=== PATIENT | female | born 2000 | race Caucasian/White ===

== ENCOUNTER 2020-06-15 09:22 | Observation (INO) | payer BC ==
[2020-06-15] MEDS ORDERED: PREN-96 PO (13:32)
== END 2020-06-15 13:30 | disposition home or self-care (01) | DRG 833 ==
LOC: XYW 09:22 → LDRP 11:38
PROVIDERS: ADMIT Specialist; ATTEND Specialist
DX: O24.410 Gestational diabetes mellitus in pregnancy, diet controlled (principal); O62.9 Abnormality of forces of labor, unspecified; Z3A.39 39 weeks gestation of pregnancy
CPT/HCPCS: 59025; 76818; 81002; 82948; 82962; G0378

== ENCOUNTER 2020-06-18 09:07 | Observation (INO) | payer BC ==
[~2020-06-18 09:07] MED LIST: PREN-96 PO
== END 2020-06-18 10:48 | disposition home or self-care (01) ==
LOC: LDRP 09:07
PROVIDERS: ADMIT Specialist; ATTEND Specialist
DX: O24.410 Gestational diabetes mellitus in pregnancy, diet controlled (principal); Z3A.39 39 weeks gestation of pregnancy
CPT/HCPCS: 59025; 76818; 81002; 82948; 82962; G0378

== ENCOUNTER 2020-06-21 20:58 | Inpatient (IN) | payer BC ==
[~2020-06-21] VITALS: Ht 165.1 cm; Wt 63.5 kg
[2020-06-21] MEDS ORDERED: LACT. RINGERS/OXYTOCIN 20UNITS 1,000 ML IV SCH (22:02)
[2020-06-21] MEDS ORDERED: LIDOCAINE 2%HCL (LOCAL ANESTH.) INJ 20ML MDV ID ONE (22:15)
[2020-06-21] MEDS ORDERED: METHYLERGONOVINE MALEATE 0.2 MG/ML AMP IM PRN (22:15)
[2020-06-21] MEDS ORDERED: DERMOPLAST 60ML BOTTLE TOP PRN (22:15)
[2020-06-21] MEDS ORDERED: PHISODERM TOP SOLN 240ML BTL TOP PRN (22:15)
[2020-06-21] MEDS ORDERED: WITCH HAZEL-GLYCERIN PAD TOP PRN (22:15)
[2020-06-21] MEDS ORDERED: PENICILLIN G POT 5MIL/D5 50ML 50 ML IV ONE ×2 (22:15→22:34)
[2020-06-21] MEDS: PENICILLIN G POTASSIUM 2,500,000 UNITS in D5W 5% 50 ML IV SCH (22:38)
[2020-06-21 22:49] LABS: Basophils # (auto) 0 10 ^3/uL (0-0.2); Basophils % (auto) 0.4 % (0.0-2.0); Eosinophils # (auto) 0 10 ^3/uL (0-0.8); Hematocrit 33.2 % (36.0-46.0); Hemoglobin 10.9 g/dL (12.2-16.2); Lymphocytes # (auto) 2.7 10 ^3/uL (0.4-5.4); Lymphocytes % (auto) 24.7 % (10.0-50.0); Mean Corpuscular Hemoglobin 30.2 pg (28.0-32.0); Mean Corpuscular Hgb Conc. 32.8 g/dL (32.0-36.0); Monocytes # (auto) 0.9 10 ^3/uL (0-1.3); Monocytes % (auto) 8.4 % (0.0-12.0); Neutrophils # (auto) 7.3 10 ^3/uL (1.6-8.6); Neutrophils % (auto) 66.5 % (37.0-80.0); Platelet Count (auto) 208 10^3/uL (140-450); Red Blood Cells 3.61 10^6/uL (4.0-5.20); Red Cell Distribution Width 12.9 % (11.8-14.3); White Blood Cell 10.9 10^3/uL (4.4-10.8)
[2020-06-21 23:09] LABS: INR 0.93 (0.9-1.15); Partial Thromboplastin Time 25.9 sec (23.0-31.2)
[2020-06-21 23:14] LABS: Albumin 2.8 g/dL (3.4-5.0); Calcium 7.9 mg/dL (8.5-10.1); Potassium 3.4 mmol/L (3.5-5.1); Uric Acid 5.9 mg/dL (2.6-6.0)
[2020-06-21 23:17] LABS: BUN/Creatinine Ratio 13.6; Bilirubin, Total 0.4 mg/dL (0.2-1.0); Total Protein 6.2 g/dL (6.4-8.2)
[2020-06-21] MEDS ORDERED: miSOPROStol 50 MCG per PRE-CUT 1/2 TAB ONE (23:26)
[2020-06-21] MEDS: miSOPROStol 50 MCG per PRE-CUT 1/2 TAB PO PRN (23:33)
[2020-06-21 23:41] LABS: Urine Bacteria MOD /hpf (None Seen); Urine Blood Negative /uL (Negative); Urine Mucus FEW (None Seen); Urine Specific Gravity 1.023 (1.001-1.035); Urine WBC 124 /hpf (0 - 5)
[2020-06-21 23:48] LABS: Alcohol, Urine < 3.0 mg/dL (0-10); Amphetamine Screen, Urine NEGATIVE (NEGATIVE); Barbiturate Scree,Urine NEGATIVE (NEGATIVE); Benzodiazephine Screen, Urine NEGATIVE (NEGATIVE); Cannabinoid Screen, Urine NEGATIVE (NEGATIVE); Cocaine Screen, Urine NEGATIVE (NEGATIVE); Opiate Scree,Urine NEGATIVE (NEGATIVE); Phencyclidine Screen, Urine NEGATIVE (NEGATIVE)
[2020-06-22] MEDS: LACTATED RINGER'S 1,000 ML IV SCH ×2 (02:38→05:48)
[2020-06-22] MEDS ORDERED: PENICILLIN G POT 5MILLION UNIT VIAL ONE (02:41)
[2020-06-22] MEDS: PENICILLIN G POTASSIUM 2,500,000 UNITS in D5W 5% 50 ML IV SCH ×2 (02:51→07:23)
[2020-06-22] MEDS: miSOPROStol 50 MCG per PRE-CUT 1/2 TAB PO PRN (03:27)
[2020-06-22] MEDS ORDERED: BUTORPHANOL TARTRATE 2 MG/1 ML VIAL ONE (06:27)
[2020-06-22] MEDS ORDERED: BUTORPHANOL TARTRATE 2 MG/1 ML VIAL IV PRN (06:30)
[2020-06-22] MEDS ORDERED: LACTATED RINGER'S 1,000 ML IV ONE (07:09)
[2020-06-22] MEDS ORDERED: NALOXONE HCL 0.4 MG/ML VIAL IV PRN (07:15)
[2020-06-22] MEDS ORDERED: LIDOCAINE HCL 2 %PF INJ 10ML AMP IJ ONE (07:15)
[2020-06-22] MEDS ORDERED: fentaNYL CITRATE 100 MCG/2 ML VL EPI ONE (07:15)
[2020-06-22] MEDS ORDERED: ePHEDrine SULFATE 50 MG/ML AMP IV ONE (07:15)
[2020-06-22] MEDS ORDERED: ROPIVACAINE HCL 100 ML EPI SCH (07:15)
[2020-06-22] MEDS ORDERED: LACT. RINGERS/OXYTOCIN 20UNITS 500 ML IV PRN (07:15)
[2020-06-22] MEDS ORDERED: LACT. RINGERS/OXYTOCIN 20UNITS 1,000 ML IV PRN (07:15)
[2020-06-22] MEDS ORDERED: IBUPROFEN 600 MG TAB PO PRN (10:30)
--- NOTE | 2020-06-22 12:15 | NUR ---
Ambulation: Patient OOB with standby assistance by RN. Patient ambulated to bathroom with steady gait. Patient able to void 400ml without difficulty. Pericare teaching provided with returned demonstration by patient. Clean gown provided and bed linen changed. Patient ambulated back to bed with steady gait and no distress noted.
[2020-06-22 15:00] VITALS: BP 107/60
[2020-06-22 19:00] VITALS: BP 99/62
[2020-06-22 23:00] VITALS: BP 116/78
--- NOTE | 2020-06-23 00:10 | NUR ---
IV removal IV DC'd with clean technique, catheter fully intact. Pressure dressing applied to site. Patient tolerated well. NOTE:
[2020-06-23 03:01] VITALS: BP 109/70
[2020-06-23 07:03] VITALS: BP 100/58
[2020-06-23 07:09] LABS: RPR Non Reactive (Non Reactive)
[2020-06-23 10:29] VITALS: BP 109/59
--- NOTE | 2020-06-23 10:37 | NUR ---
Discharge: Discharge instructions given as ordered. Pt encouraged to follow up with SUPERVISOR WELDING EQUIPMENT REPAIRER as instructed. All questions and concerns addressed. Patient verbalized understanding. Medication reconciliation completed and copy given to patient. Patient encouraged to prepare to depart unit. REFUSED ALL VACCINES T-DAP .
--- NOTE | 2020-06-23 12:02 | NUR ---
Discharge: Patient taken to vehicle via ambulation with all personal belongings, accompanied by staff and family member. No distress noted at time of departure, no adverse changes in status since initial assessment.
== END 2020-06-23 12:00 | disposition home or self-care (01) | DRG 807 ==
LOC: LDRP 20:58
PROVIDERS: ADMIT Specialist; ATTEND Specialist
PROC: 10E0XZZ Delivery of Products of Conception, External Approach (ICD-10-PCS; principal; 2020-06-22)
PROC: 3E0P7VZ Introduction of Hormone into Female Reproductive, Via Natural or Artificial Opening (ICD-10-PCS; 2020-06-22)
PROC: 0UQGXZZ Repair Vagina, External Approach (ICD-10-PCS; 2020-06-22)
PROC: 3E0R3BZ Introduction of Anesthetic Agent into Spinal Canal, Percutaneous Approach (ICD-10-PCS; 2020-06-22)
PROC: 00HU33Z Insertion of Infusion Device into Spinal Canal, Percutaneous Approach (ICD-10-PCS; 2020-06-22)
DX: O99.824 Streptococcus B carrier state complicating childbirth (principal); Z37.0 Single live birth; Z3A.40 40 weeks gestation of pregnancy; O24.420 Gestational diabetes mellitus in childbirth, diet controlled; O71.4 Obstetric high vaginal laceration alone
CPT/HCPCS: 36415; 59025; 59409; 62282; 80053; 80307; 81001; 81002; 84112; 84550; 85025; 85610; 85730; 86592; 86850; 86900; 86901; 94760; 96360; 96361; 96365; 96366; 96374; G0378; J2540; J2590; J7060

== ENCOUNTER 2023-08-08 13:53 | Observation (INO) | payer BC, MEDICAID ==
[2023-08-08] MEDS ORDERED: CEPH250C PO (15:43)
== END 2023-08-08 15:47 | disposition home or self-care (01) ==
LOC: UNDOADMOB 13:53 → LDRP 13:53
PROVIDERS: ADMIT Obstetrics & Gynecology; ATTEND Obstetrics & Gynecology
DX: O24.419 Gestational diabetes mellitus in pregnancy, unspecified control (principal); O23.43 Unspecified infection of urinary tract in pregnancy, third trimester; Z3A.38 38 weeks gestation of pregnancy
CPT/HCPCS: 59025; 76818; 81002; 82962; 94760; G0378

== ENCOUNTER 2023-08-20 15:50 | Inpatient (IN) | payer MEDICAID ==
[~2023-08-20] VITALS: Ht 165.1 cm; Wt 68.9 kg
[~2023-08-20 15:50] MED LIST changes: +CEPH250C PO
[2023-08-20] MEDS ORDERED: PHISODERM TOP SOLN 240ML BTL TOP PRN (17:30)
[2023-08-20] MEDS ORDERED: LACT. RINGERS/OXYTOCIN 20UNITS 500 ML IV ONE ×2 (17:30→18:00)
[2023-08-20] MEDS ORDERED: LACTATED RINGER'S 1,000 ML IV SCH (17:30)
[2023-08-20] MEDS ORDERED: DERMOPLAST 60ML BOTTLE TOP PRN (17:30)
[2023-08-20] MEDS ORDERED: PROMETHAZINE HCL 25 MG/ML 1ML IV PRN (17:30)
[2023-08-20] MEDS ORDERED: LIDOCAINE 2%HCL (LOCAL ANESTH.) INJ 20ML MDV IJ PRN (17:30)
[2023-08-20] MEDS ORDERED: BUTORPHANOL TARTRATE 2 MG/1 ML VIAL IV PRN ×2 (17:30)
[2023-08-20] MEDS ORDERED: PENICILLIN G POT 5MIL/D5 50ML 50 ML IV ONE (17:45)
[2023-08-20 18:08] LABS: Basophils # (auto) 0.1 10 ^3/uL (0-0.2); Basophils % (auto) 0.8 % (0.0-2.0); Eosinophils # (auto) 0 10 ^3/uL (0-0.8); Hematocrit 34.8 % (36.0-46.0); Hemoglobin 11.4 g/dL (12.2-16.2); Lymphocytes # (auto) 2.9 10 ^3/uL (0.4-5.4); Lymphocytes % (auto) 26.6 % (10.0-50.0); Mean Corpuscular Hemoglobin 29.5 pg (28.0-32.0); Mean Corpuscular Hgb Conc. 32.8 g/dL (32.0-36.0); Monocytes # (auto) 0.9 10 ^3/uL (0-1.3); Neutrophils # (auto) 7.1 10 ^3/uL (1.6-8.6); Neutrophils % (auto) 64.6 % (37.0-80.0); Nucleated Red Blood Cells % 0.1 %; Red Blood Cells 3.87 10^6/uL (4.0-5.20); Red Cell Distribution Width 14.5 % (11.8-14.3)
[2023-08-20 18:10] LABS: Urine Bacteria FEW /hpf (None Seen); Urine Blood Negative /uL (Negative); Urine Clarity HAZY (Clear); Urine Color Yellow (Yellow); Urine Protein, UAD TRACE (Negative); Urine WBC 14 /hpf (0 - 5); Urine pH 6.5 (5.0-8.0)
[2023-08-20 18:24] LABS: INR 0.93 (0.9-1.15); Partial Thromboplastin Time 26.3 SEC (24.5-34.5); Prothrombin Time 9.8 sec (9.3-11.8)
[2023-08-20 18:26] LABS: Amphetamine Screen, Urine Neg (NEGATIVE); Barbiturate Scree,Urine Neg (NEGATIVE); Benzodiazephine Screen, Urine Neg (NEGATIVE); Cocaine Screen, Urine Neg (NEGATIVE); Opiate Scree,Urine Neg (NEGATIVE)
[2023-08-20 18:27] LABS: Cannabinoid Screen, Urine Neg (NEGATIVE); Phencyclidine Screen, Urine Neg (NEGATIVE)
[2023-08-20 18:28] LABS: Albumin 3.9 g/dL (3.2-4.8); Alkaline Phosphatase 195 U/L (46-116); Anion Gap 8 (5-15); Aspartate Aminotransferase 17 U/L (13-40); BUN/Creatinine Ratio 13.8 (10.0-20.0); Blood Urea Nitrogen 8 mg/dL (9-23); Calcium 8.9 mg/dL (8.5-10.1); Carbon Dioxide 22 mmol/L (20-30); Chloride 107 mmol/L (98-107); Glucose 85 mg/dL (74-106); Potassium 3.6 mmol/L (3.5-5.1); Sodium 137 mmol/L (136-145)
[2023-08-20 18:29] LABS: Bilirubin, Total 0.4 mg/dL (0.2-1.0); Total Protein 6.8 g/dL (5.7-8.2)
[2023-08-20] MEDS: WITCH HAZEL-GLYCERIN PAD TOP PRN (18:45)
[2023-08-20 19:01] LABS: Alanine Aminotransferase 9 U/L (7-40)
[2023-08-20] MEDS ORDERED: PENICILLIN G POTASSIUM 2,500,000 UNITS in D5W 5% 50 ML IV SCH (21:45)
[2023-08-20] MEDS ORDERED: ACETAMINOPHEN 325 MG TAB PO PRN (22:30)
[2023-08-20] MEDS ORDERED: ONDANSETRON ODT 4 MG TAB PO PRN (22:30)
[2023-08-20 23:25] VITALS: BP 122/68; PULSE 76; RESP 18; TEMP 98.6; O2SAT 97
[2023-08-21 03:00] VITALS: BP 103/57; PULSE 73; RESP 16; TEMP 98.8; O2SAT 98
[2023-08-21] MEDS: IBUPROFEN 600 MG TAB PO PRN ×2 (04:11→20:10)
[2023-08-21 06:35] VITALS: BP 118/56; PULSE 61; RESP 16; TEMP 98.3
[2023-08-21 09:44] LABS: Basophils # (auto) 0.1 10 ^3/uL (0-0.2); Basophils % (auto) 0.5 % (0.0-2.0); Eosinophils # (auto) 0 10 ^3/uL (0-0.8); Hematocrit 32.2 % (36.0-46.0); Hemoglobin 10.8 g/dL (12.2-16.2); Lymphocytes # (auto) 2.6 10 ^3/uL (0.4-5.4); Lymphocytes % (auto) 22.6 % (10.0-50.0); Mean Corpuscular Hemoglobin 30.4 pg (28.0-32.0); Mean Corpuscular Hgb Conc. 33.5 g/dL (32.0-36.0); Mean Corpuscular Volume 90.7 fL (80.0-100.0); Monocytes % (auto) 8.2 % (0.0-12.0); Neutrophils # (auto) 7.9 10 ^3/uL (1.6-8.6); Neutrophils % (auto) 68.7 % (37.0-80.0); Nucleated Red Blood Cells % 0.1 %; Red Blood Cells 3.55 10^6/uL (4.0-5.20); Red Cell Distribution Width 14.9 % (11.8-14.3); White Blood Cell 11.6 10^3/uL (4.4-10.8)
[2023-08-21 11:00] VITALS: BP 116/78; PULSE 76; RESP 16; TEMP 98.5; O2SAT 99
[2023-08-21] MEDS ORDERED: FERR30CA PO (13:07)
[2023-08-21] MEDS ORDERED: IBU600T PO (13:07)
[2023-08-21] MEDS ORDERED: DOCU-265 PO (13:07)
[2023-08-21] MEDS ORDERED: CEPH250C PO (13:07)
[2023-08-21 15:00] VITALS: BP 117/77; PULSE 63; RESP 18; TEMP 99.3
[2023-08-21 19:00] VITALS: BP 126/77; PULSE 66; PULSE 90; RESP 18; RESP 20; TEMP 98.7; O2SAT 96
[2023-08-21] MEDS: WITCH HAZEL-GLYCERIN PAD TOP PRN (20:13)
[2023-08-21] MEDS ORDERED: DOCUSATE SOD 100 MG CAP PO SCH (22:00)
[2023-08-22 07:07] LABS: RPR Non Reactive (Non Reactive)
== END 2023-08-21 21:00 | disposition home or self-care (01) | DRG 560 ==
LOC: UNDOADMOB 15:50 → LDRP 15:50 → OBSVTOIN 17:00 → LDRP 17:51
PROVIDERS: ADMIT Obstetrics & Gynecology; ATTEND Obstetrics & Gynecology
PROC: 10E0XZZ Delivery of Products of Conception, External Approach (ICD-10-PCS; principal; 2023-08-20)
PROC: 0HQ9XZZ Repair Perineum Skin, External Approach (ICD-10-PCS; 2023-08-20)
DX: O99.824 Streptococcus B carrier state complicating childbirth (principal); Z37.0 Single live birth; O24.429 Gestational diabetes mellitus in childbirth, unspecified control; O48.0 Post-term pregnancy; Z3A.40 40 weeks gestation of pregnancy; O70.0 First degree perineal laceration during delivery
CPT/HCPCS: 36415; 59025; 59409; 76818; 80053; 80307; 81001; 81002; 82948; 85025; 85610; 85730; 86592; 86850; 86900; 86901; 94760; 94762; 96360; 96361; G0378; J2540; J2590; J7060

== ENCOUNTER 2025-01-15 18:17 | Inpatient (IN) | payer MEDICAID ==
[~2025-01-15] VITALS: Ht 167.6 cm; Wt 73.0 kg
[~2025-01-15 18:17] MED LIST changes: +DOCU-265 PO; +FERR30CA PO; +IBU600T PO
--- NOTE | 2025-01-15 19:38 | DVH ---
EXAM: US OB ULTRASOUND COMP GTR 14 WKS CLINICAL HISTORY: Rule out macrosomia COMPARISON: None TECHNIQUE: Grayscale, color-flow Doppler, and spectral Doppler ultrasound of the pelvis is performed by transabdominal technique. Findings: Single live intrauterine in vertex presentation with heart rate of 141 bpm. Cervical os is suboptimally visualized. Placenta is posterior in location without evidence of previa or abruption. Limited evaluation of anatomy. Estimated gestational age 38 weeks 6 days based on parameters which include biparietal diameter 9.6 cm, head circumference 34.0 cm, abdominal circumference 34.1 cm, and femur length 7.[address] ratios within normal limits. Estimated weight 3517 g (7 lb 12 oz ). Amniotic fluid is within normal limits with COOPER 11.9 cm and MVP 4.8 cm. Impression: 1. Single live intrauterine in vertex presentation with heart rate of 141 bpm. 2. Estimated gestational age 38 weeks 6 days with estimated date of confinement 01/23/2025. 3. COOPER 11.9 cm and MVP 4.8 cm
--- NOTE | 2025-01-15 20:22 | DVHHP2 ---
OB CC & HPI Date Date of Admission: Jan 15, 2025 Patient Identification: : 3 Para: 2 EDC: Jan 20, 2025 EGA: 39.2 Chief Complaints: Reason for admission: active labor Admission Nurse Assessment Rev: Yes History of Present Complaints 24yo IUP@39.2wks presents in labor. Pt report light spotting since cervical exam in clinic. Denies LOF//RUBIN/vision changes/RUQ pain. Endorses +FM. PNC: Routine PNC at [facility], adequate visits, PNC complicated by iron deficiency anemia. GTT wnl, dating based on LMP c/w 18wk sono, transfer of care from [place], GBS pos OB hx: x2, uncomplicated in 2019 and 2022 Past Medical History Cardiac: No pertinent Hx Pulmonary: No pertinent Hx Central Nervous System: No pertinent Hx GI: No pertinent Hx Hemotology/Oncology: Iron deficiency anemia Hepatobiliary: No pertinent Hx Psychiatric: No pertinent Hx Musculoskeletal: No pertinent Hx Rheumotologic: No pertinent Hx Infectious Disease: No peritnent Hx ENT: No pertinent Hx Renal/: No pertinent Hx Endocrine: No pertinent Hx Dermatology: No pertinent Hx Past Surgical History: No pertinent Hx OB History OB History Care: Good Care Ultrasounds: Normal mid trimester US Obstetrical Complications: None Medical Complications: None Allergies: Coded Allergies: NO KNOWN ALLERGIES (Unverified , 06/21/20) Allergies nkda Home Meds Active Scripts Cephalexin (KEFLEX CAPSULE) 250 Mg Cp, 500 MG PO BID for 7 Days, #14 CAP Prov:IVA TERESA CNM 08/21/23 Ferric Maltol (Accrufer) 30 Mg Cap, 30 MG PO BID for 30 Days, #60 CAP 3 Refills take twice a day on an empty stomach, either 1 hour before or 2 hours after a meal Prov:IVA TERESA CNM 08/21/23 Ibuprofen Micronized (MOTRIN TABLET) 600 Mg Tb, 600 MG PO Q6HP PRN for 20 Days, #80 TAB Prov:IVA TERESA CNCory 08/21/23 Docusate Sodium (Docusate Sodium) 100 Mg Cap, 100 MG PO HS PRN for 30 Days, #30 CAP 3 Refills Prov:IVA TERESA CNM 08/21/23 Reported Medications Vit W/ Ferrous Fumara ( One Daily) Daily Tab, 1 TAB PO DAILY, #90 TAB 3 Refills 06/15/20 Home Meds PNV Family & Social History Family/Social History Past Family/Social History: denies Blood Type: B+ Rubella: immune RPR/VDRL: Negative GBS Status: Positive HBsAG: Negative Review of Systems Constitutional: No symptom reported Ears, Nose, & Throat: No symptom reported Eyes: No symptom reported Pulmonary/Respiratory: No symptom reported Cardiovascular: No symptom reported Gastrointestinal: No symptom reported Genitourinary: No symptom reported Musculoskeletal: No symptom reported Skin: No symptom reported Psychiatric: No symptom reported Endocrine: No symptom reported Hemotologic/Lymphatic: No symptom reported OB Admission Exam Physical Exam Vitals: VSS Heart: Rhythm Normal Lungs: Clear Abdomen: Gravid Extremities: Normal Reflexes: Normal Pelvic Exam: Initial VE: 6/70%/-1 Recheck after 2 hours: 6.5/70%/0 Membranes: Intact Heart Rate: 140's Accelerations: Accelerations Present Decelerations: No Decelerations Short Term Variability: Present Adjunct Professor Of Voice Variability: Average (6-25) Contractions on Admission: < 5 Minutes Apart Frequency of Contractions: 2-5 Duration: 60 Intensity: Mild OB Plan Plan Admitting Diagnosis: A: 24 yo F IUP 39.2 wks Active Labor Category I EFM Intact Membranes GBS positive Plan: Expectant Management Other Plan: P: Admit to L&D Informed consent obtained Pt wants low intervention, declines augmentation at this time. Membrane sweep done with pts consent. Expectant management Pt declines IV PCN for GBS treatment. Discussed risk of sepsis infection. Pt verbalized understanding, chooses to decline IV PCN. monitoring: doppler q30min IV saline locked Routine labs ordered Pain mgmt PRN Frequent position changes in and out of bed encouraged Limit SVE unless necessary Anticipate CNM will consult with Dr. Doss PRN Visit Coding OBGYN Date of Service: Jan 15, 2025 Billing Provider: IVA TERESA CNM FAST FOOD CREW MEMBER Common Visit Codes: [id number] INP/OBS CARE (LOW) FAST FOOD CREW MEMBER Procedure Codes: 40377-89- NON-STRESS TEST MEL CAZARES MDWF Jan 15, 2025 20:22
[2025-01-15] MEDS ORDERED: NALBUPHINE HCL 10 MG/1ml INJECTION IV PRN (20:30)
[2025-01-15] MEDS ORDERED: LACTATED RINGER'S 1,000 ML IV SCH (20:30)
[2025-01-15] MEDS ORDERED: NALBUPHINE HCL 10 MG/1ml INJECTION IM PRN (20:30)
[2025-01-15 20:53] LABS: Urine Bacteria None Seen /hpf (None Seen)
[2025-01-15 21:25] LABS: Basophils # (auto) 0 10 ^3/uL (0-0.2); Basophils % (auto) 0.4 % (0.0-2.0); Eosinophils # (auto) 0 10 ^3/uL (0-0.8); Hematocrit 31.3 % (36.0-46.0); Hemoglobin 10.2 g/dL (12.2-16.2); Lymphocytes # (auto) 2.8 10 ^3/uL (0.4-5.4); Lymphocytes % (auto) 23.4 % (10.0-50.0); Mean Corpuscular Hemoglobin 28.1 pg (28.0-32.0); Mean Corpuscular Hgb Conc. 32.6 g/dL (32.0-36.0); Mean Corpuscular Volume 86.2 fL (80.0-100.0); Monocytes # (auto) 0.8 10 ^3/uL (0-1.3); Monocytes % (auto) 7.1 % (0.0-12.0); Neutrophils # (auto) 8.2 10 ^3/uL (1.6-8.6); Neutrophils % (auto) 69.1 % (37.0-80.0); Platelet Count (auto) 251 10^3/uL (140-450); Red Blood Cells 3.63 10^6/uL (4.0-5.20); Red Cell Distribution Width 14.1 % (11.8-14.3); White Blood Cell 11.8 10^3/uL (4.4-10.8)
[2025-01-15 21:47] LABS: INR 0.94 (0.9-1.15); Partial Thromboplastin Time 25.9 SEC (24.5-34.5)
[2025-01-15 21:50] LABS: Urine Blood TRACE /uL (Negative); Urine Clarity Clear (Clear); Urine Color Light-Yellow (Yellow); Urine Protein, UAD Negative (Negative); Urine Squamous Epithelial Cell FEW /hpf (<5); Urine Urobilinogen Normal (Negative); Urine WBC 14 /HPF (0-5)
[2025-01-15 21:51] LABS: Alanine Aminotransferase 10 U/L (7-40); Albumin 3.8 g/dL (3.2-4.8); Anion Gap 11 (5-15); Aspartate Aminotransferase 15 U/L (13-40); BUN/Creatinine Ratio 19.2 (10.0-20.0); Bilirubin, Total 0.3 mg/dL (0.2-1.0); Blood Urea Nitrogen 14 mg/dL (9-23); Calcium 9.2 mg/dL (8.7-10.4); Chloride 107 mmol/L (98-107); Glucose 90 mg/dL (74-106); Potassium 3.7 mmol/L (3.5-5.1); Sodium 137 mmol/L (136-145); Total Protein 6.2 g/dL (5.7-8.2)
[2025-01-15 22:12] LABS: Amphetamine Screen, Urine Neg (NEGATIVE); Barbiturate Scree,Urine Neg (NEGATIVE); Benzodiazephine Screen, Urine Neg (NEGATIVE); Cannabinoid Screen, Urine Neg (NEGATIVE); Cocaine Screen, Urine Neg (NEGATIVE); Opiate Scree,Urine Neg (NEGATIVE); Phencyclidine Screen, Urine Neg (NEGATIVE)
[2025-01-15 22:14] LABS: Alkaline Phosphatase 186 U/L (46-116); Carbon Dioxide 19 mmol/L (20-31)
[2025-01-15] MEDS: DERMOPLAST 60ML BOTTLE TOP PRN (23:18)
[2025-01-15] MEDS: WITCH HAZEL-GLYCERIN PAD TOP PRN (23:18)
[2025-01-15] MEDS: PHISODERM TOP SOLN 240ML BTL TOP PRN (23:18)
--- NOTE | 2025-01-16 01:10 | DVHPN2 ---
KARENM Labor Progress Note Date and Time Seen Date Seen: Jan 16, 2025 Time Seen: 01:00 Subjective Subjective Comment Pt c/o more pain with UCs, declines IV meds/epidural, wants to go to unmedicated. Denies rectal pressure. Objective Vital Signs VSS Laboratory Tests Test 01/15/25 20:42 01/15/25 20:51 Range/Units White Blood Count 11.8 H 4.4-10.8 10^3/uL Red Blood Count 3.63 L 4.0-5.20 10^6/uL Hemoglobin 10.2 L 12.2-16.2 g/dL Hematocrit 31.3 L 36.0-46.0 % Mean Corpuscular Volume 86.2 80.0-100.0 fL Mean Corpuscular Hemoglobin 28.1 28.0-32.0 pg Mean Corpuscular Hemoglobin Concent 32.6 32.0-36.0 g/dL Red Cell Distribution Width 14.1 11.8-14.3 % Platelet Count 251 140-450 10^3/uL Mean Platelet Volume 9.1 6.9-10.8 fL Neutrophils (%) (Auto) 69.1 37.0-80.0 % Lymphocytes (%) (Auto) 23.4 10.0-50.0 % Monocytes (%) (Auto) 7.1 0.0-12.0 % Eosinophils (%) (Auto) 0.0 0.0-7.0 % Basophils (%) (Auto) 0.4 0.0-2.0 % Neutrophils # (Auto) 8.2 1.6-8.6 10 ^3/uL Lymphocytes # (Auto) 2.8 0.4-5.4 10 ^3/uL Monocytes # (Auto) 0.8 0-1.3 10 ^3/uL Eosinophils # (Auto) 0 0-0.8 10 ^3/uL Basophils # (Auto) 0 0-0.2 10 ^3/uL Nucleated Red Blood Cells 0.0 % Prothrombin Time 10.0 9.3-11.8 sec Prothrombin Time INR 0.94 0.9-1.15 Activated Partial Thromboplast Time 25.9 24.5-34.5 SEC Sodium Level 137 136-145 mmol/L Potassium Level 3.7 3.5-5.1 mmol/L Chloride Level 107 98-107 mmol/L Carbon Dioxide Level 19 L 20-31 mmol/L Anion Gap 11 5-15 Blood Urea Nitrogen 14 9-23 mg/dL Creatinine 0.73 0.550-1.02 mg/dL Glomerular Filtration Rate Calc 118 >90 mL/min BUN/Creatinine Ratio 19.2 10.0-20.0 Serum Glucose 90 74-106 mg/dL Calcium Level 9.2 8.7-10.4 mg/dL Total Bilirubin 0.3 0.2-1.0 mg/dL Aspartate Amino Transferase (AST) 15 13-40 U/L Alanine Aminotransferase (ALT) 10 7-40 U/L Alkaline Phosphatase 186 H 46-116 U/L Total Protein 6.2 5.7-8.2 g/dL Albumin 3.8 3.2-4.8 g/dL Treponema pallidum Antibody Non-reactive Negative Urine Color Light-yellow Yellow Urine Clarity Clear Clear Urine pH 6.0 5.0-9.0 Urine Specific [place] 1.020 1.001-1.035 Urine Protein Negative Negative Urine Ketones Negative Negative Urine Blood Trace H Negative /uL Urine Nitrite Negative Negative Urine Bilirubin Negative Negative Urine Urobilinogen Normal Negative mg/dL Urine Leukocyte Esterase 3+ Negative /uL Urine RBC 2 0 - 4 /hpf Urine Microscopic WBC 14 H 0-5 /HPF Urine Squamous Epithelial Cells Few <5 /hpf Urine Bacteria None seen None Seen /hpf Urine Glucose Normal Normal mg/dL Urine Opiates Screen Neg NEGATIVE Urine Fentanyl Screen Neg NEGATIVE Urine Barbiturates Screen Neg NEGATIVE Urine Phencyclidine Screen Neg NEGATIVE Urine Amphetamines Screen Neg NEGATIVE Urine Benzodiazepines Screen Neg NEGATIVE Urine Cocaine Screen Neg NEGATIVE Urine Cannabinoids Screen Neg NEGATIVE Monitoring Method Monitoring Method: External Heart Rate Heart Rate Baseline: 140 (via doppler) Contractions Contractions Frequency: Other (q2-3 min per observation at bedside) Duration of Contraction: 60 Contractions Intensity: Moderate Contractions Resting Tone: Relaxed Membranes Membranes: Intact Vaginal Exam Vag Exam Deferred: Yes (pt declined) Medications Medications - Pitocin: No Medications - Pain Medications: PRN Medication - Epidural: No Lab Results Lab Results Current Medications Medications (Trade) Dose Ordered Sig/Alfred Start Time Stop Time Status Last Admin Dose Admin Lactated Ringer's 1,000 ml @ 125 mls/hr Q8H 01/15/25 20:30 Nalbuphine HCl (Nubain) 10 mg Q4HP PRN 01/15/25 20:30 Nalbuphine HCl (Nubain) 10 mg Q4HP PRN 01/15/25 20:30 Witch Jocelyn (Tucks) 1 pad PRN PRN 01/15/25 20:30 01/15/25 23:18 1 PAD Sodium Lauryl Sulfate (Phisoderm) 240 ml PRN PRN 01/15/25 20:30 01/15/25 23:18 240 ML Benzocaine (Dermoplast) 1 applic PRN PRN 01/15/25 20:30 01/15/25 23:18 1 APPLIC Lidocaine HCl (Xylocaine) 20 ml ONCE PRN 01/15/25 20:30 Oxytocin 500 ml @ 999 mls/hr Q31M ONCE 01/15/25 20:30 01/15/25 21:00 DC Oxytocin 500 ml @ 125 mls/hr Q4H ONCE 01/15/25 21:00 01/16/25 00:59 DC Laboratory Tests Test 01/15/25 20:51 01/15/25 20:42 Range/Units Urine Color Light-yellow Yellow Urine Clarity Clear Clear Urine pH 6.0 5.0-9.0 Urine Specific [place] 1.020 1.001-1.035 Urine Protein Negative Negative Urine Ketones Negative Negative Urine Blood Trace H Negative /uL Urine Nitrite Negative Negative Urine Bilirubin Negative Negative Urine Urobilinogen Normal Negative mg/dL Urine Leukocyte Esterase 3+ Negative /uL Urine RBC 2 0 - 4 /hpf Urine Microscopic WBC 14 H 0-5 /HPF Urine Squamous Epithelial Cells Few <5 /hpf Urine Bacteria None seen None Seen /hpf Urine Glucose Normal Normal mg/dL Urine Opiates Screen Neg NEGATIVE Urine Fentanyl Screen Neg NEGATIVE Urine Barbiturates Screen Neg NEGATIVE Urine Phencyclidine Screen Neg NEGATIVE Urine Amphetamines Screen Neg NEGATIVE Urine Benzodiazepines Screen Neg NEGATIVE Urine Cocaine Screen Neg NEGATIVE Urine Cannabinoids Screen Neg NEGATIVE White Blood Count 11.8 H 4.4-10.8 10^3/uL Red Blood Count 3.63 L 4.0-5.20 10^6/uL Hemoglobin 10.2 L 12.2-16.2 g/dL Hematocrit 31.3 L 36.0-46.0 % Mean Corpuscular Volume 86.2 80.0-100.0 fL Mean Corpuscular Hemoglobin 28.1 28.0-32.0 pg Mean Corpuscular Hemoglobin Concent 32.6 32.0-36.0 g/dL Red Cell Distribution Width 14.1 11.8-14.3 % Platelet Count 251 140-450 10^3/uL Mean Platelet Volume 9.1 6.9-10.8 fL Neutrophils (%) (Auto) 69.1 37.0-80.0 % Lymphocytes (%) (Auto) 23.4 10.0-50.0 % Monocytes (%) (Auto) 7.1 0.0-12.0 % Eosinophils (%) (Auto) 0.0 0.0-7.0 % Basophils (%) (Auto) 0.4 0.0-2.0 % Neutrophils # (Auto) 8.2 1.6-8.6 10 ^3/uL Lymphocytes # (Auto) 2.8 0.4-5.4 10 ^3/uL Monocytes # (Auto) 0.8 0-1.3 10 ^3/uL Eosinophils # (Auto) 0 0-0.8 10 ^3/uL Basophils # (Auto) 0 0-0.2 10 ^3/uL Nucleated Red Blood Cells 0.0 % Prothrombin Time 10.0 9.3-11.8 sec Prothrombin Time INR 0.94 0.9-1.15 Activated Partial Thromboplast Time 25.9 24.5-34.5 SEC Sodium Level 137 136-145 mmol/L Potassium Level 3.7 3.5-5.1 mmol/L Chloride Level 107 98-107 mmol/L Carbon Dioxide Level 19 L 20-31 mmol/L Anion Gap 11 5-15 Blood Urea Nitrogen 14 9-23 mg/dL Creatinine 0.73 0.550-1.02 mg/dL Glomerular Filtration Rate Calc 118 >90 mL/min BUN/Creatinine Ratio 19.2 10.0-20.0 Serum Glucose 90 74-106 mg/dL Calcium Level 9.2 8.7-10.4 mg/dL Total Bilirubin 0.3 0.2-1.0 mg/dL Aspartate Amino Transferase (AST) 15 13-40 U/L Alanine Aminotransferase (ALT) 10 7-40 U/L Alkaline Phosphatase 186 H 46-116 U/L Total Protein 6.2 5.7-8.2 g/dL Albumin 3.8 3.2-4.8 g/dL Treponema pallidum Antibody Non-reactive Negative Assessment Assessment A: 24 yo F IUP 39.3 wks Active Labor +FHTs Intact Membranes GBS positive Plan Plan P: Expectant management. Discussed AROM as a form of augmentation, pt declines for now. monitoring: doppler q15min now then q5min during second stage of labor IV saline locked Pain mgmt PRN Frequent position changes in and out of bed encouraged Limit SVE unless necessary Anticipate CNM will consult with Dr. Doss PRN Plan discussed with: Patient, Other (mother) Visit Coding OBGYN Date of Service: Jan 16, 2025 Billing Provider: IVA TERESA CNM NEWSPAPER EDITOR MANAGING Common Visit Codes: [id number] INP/OBS CARE(LOW) IVA TERESA CNM Jan 16, 2025 01:10
[2025-01-16] MEDS ORDERED: METHYLERGONOVINE MALEATE 0.2 MG/ML AMP IM ONE (01:46)
[2025-01-16] MEDS ORDERED: ONDANSETRON HCL 4 MG/2 ML VIAL IV PRN (02:45)
[2025-01-16] MEDS ORDERED: LACT. RINGERS/OXYTOCIN 20UNITS 500 ML IV ONE ×2 (02:45→03:15)
[2025-01-16] MEDS: IBUPROFEN 800 MG TAB PO SCH (03:19)
[2025-01-16] MEDS: METHYLERGONOVINE MALEATE 0.2 MG/ML AMP IM ONE (03:39)
[2025-01-16] MEDS: LIDOCAINE 2%HCL (LOCAL ANESTH.) INJ 20ML MDV IJ PRN (03:40)
--- NOTE | 2025-01-16 03:50 | LDN2 ---
Labor and Delivery Note Date 01/16/25 Age 24 3 Para 3 EDC 01/20/2025 EGA 39.3 Diagnosis Active labor then Vaginal Delivery: VTX Vacuum Assisted: No Placenta: Spontaneous Sex: Male Weight pending Apgars 8/9 Nuchal Cord Transected: No Amniotic Fluid: Clear Anesthesia local lidocaine Episiotomy: No Extension: No Repaired with 3-0 Vicryl suture EBL QBL: 800ml Labs Blood Bank 01/15/25 20:42: Blood Type B POSITIVE Complications PPH: CNM at bedside for delivery. Fundus at U, midline. Firm to massage. VSS. Patient denies dizziness. IM Methergine and IV TXA given by RN. Manual sweep done, uterus cleared of all clots. Ancef 2G IVPB x1 ordered. Conditions stable Registered Art Therapist Dr. Heart Comments/Significant Med Arnold At 0213 this 24yo now delivered a viable Male infant by w/ APGARS 8/9. ZINA. Infant placed skin to skin on pts chest. Cord clamped and cut after placenta delivered. Intact 3-vessel cord placenta delivered spontaneously, Nohemy. Pitocin IV bolus started. See PPH note above. Placenta sent to pathology. Patient had local anesthesia. Cervix/vagina inspected (intact) and bilateral labial lacerations present which was repaired with 3-0 vicryl suture. Abrasions noted at introitus and clitorourethral area, hemostatic, not repaired. Fundus at U, firm, midline, and light lochia. QBL 800ml. VSS. Count correct x2. Patient to care and baby to couplet care, both stable. Visit Coding OBGYN Date of Service: Jan 16, 2025 Billing Provider: IVA TERESA CNM IMAGER Common Visit Codes: [id number] INP/OBS CARE(HIGH) IMAGER Procedure Codes: 96092-CCS DEL INCLUDING MEL CAZARES MDWF Jan 16, 2025 03:50
[2025-01-16] MEDS: ceFAZolin 2 GM/D5W50ml 50 ML IV ONE (04:15)
[2025-01-16] MEDS: ACETAMINOPHEN 325 MG TAB PO PRN (04:26)
[2025-01-16] MEDS: LACT. RINGERS/OXYTOCIN 20UNITS 500 ML IV ONE ×2 (06:25→06:26)
[2025-01-16 07:00] VITALS: BP 128/56; PULSE 59; RESP 16; TEMP 98; O2SAT 98
[2025-01-16] MEDS ORDERED: IBUPROFEN 800 MG TAB PO SCH (09:20)
[2025-01-16] MEDS ORDERED: IBUPROFEN 800 MG TAB PO PRN (09:45)
[2025-01-16 11:00] VITALS: BP 120/64; PULSE 65; RESP 18; TEMP 97.7; O2SAT 97
[2025-01-16 15:00] VITALS: BP 105/63; PULSE 82; RESP 16; TEMP 98.4
[2025-01-16] MEDS ORDERED: TRANEXAMIC ACID 1,000 mg/10ml INJ VIAL IV ONE (16:33)
[2025-01-16 17:40] LABS: Basophils # (auto) 0.1 10 ^3/uL (0-0.2); Basophils % (auto) 0.4 % (0.0-2.0); Eosinophils # (auto) 0 10 ^3/uL (0-0.8); Hematocrit 28.1 % (36.0-46.0); Hemoglobin 9.4 g/dL (12.2-16.2); Lymphocytes # (auto) 2.8 10 ^3/uL (0.4-5.4); Lymphocytes % (auto) 21.7 % (10.0-50.0); Mean Corpuscular Hemoglobin 28.7 pg (28.0-32.0); Mean Corpuscular Hgb Conc. 33.5 g/dL (32.0-36.0); Mean Corpuscular Volume 85.7 fL (80.0-100.0); Monocytes # (auto) 1.3 10 ^3/uL (0-1.3); Monocytes % (auto) 10.4 % (0.0-12.0); Neutrophils # (auto) 8.7 10 ^3/uL (1.6-8.6); Neutrophils % (auto) 67.5 % (37.0-80.0); Nucleated Red Blood Cells % 0.1 %; Platelet Count (auto) 243 10^3/uL (140-450); Red Blood Cells 3.28 10^6/uL (4.0-5.20); Red Cell Distribution Width 13.9 % (11.8-14.3)
[2025-01-16] MEDS ORDERED: FER325T PO (18:55)
[2025-01-16] MEDS ORDERED: IBU600T PO (18:55)
[2025-01-16] MEDS ORDERED: DOCU-265 PO (18:55)
[2025-01-16 19:00] VITALS: BP 98/55; PULSE 62; RESP 15; TEMP 98.2; O2SAT 97
[2025-01-16] MEDS: IBUPROFEN 800 MG TAB PO ONE (19:00)
[2025-01-16 23:00] VITALS: BP 107/62; PULSE 73; RESP 17; TEMP 98.4; O2SAT 96
[2025-01-16] MEDS: DOCUSATE SOD 100 MG CAP PO SCH (23:12)
--- NOTE | 2025-01-16 23:59 | DVHPN2 ---
Progress Note Date Seen: Jan 17, 2025 Subjective vital signs Vital Sign Date Time Temp Pulse Resp B/P (MAP) Pulse Ox O2 Delivery O2 Flow Rate FiO2 01/16/25 23:00 98.4 73 17 107/62 (77) 96 98.4 01/16/25 19:51 Room Air Total Intake and Output 01/15/25 01/15/25 01/16/25 15:00 23:00 07:00 Output Total 1400 ml Balance -1400 ml medications Current Medications Medications Dose Ordered Sig/Alfred Route Start Time Stop Time Status Last Admin Dose Admin Witch Jcoelyn 1 pad PRN PRN TOP 01/15/25 20:30 01/15/25 23:18 1 PAD Sodium Lauryl Sulfate 240 ml PRN PRN TOP 01/15/25 20:30 01/15/25 23:18 240 ML Benzocaine 1 applic PRN PRN TOP 01/15/25 20:30 01/15/25 23:18 1 APPLIC Acetaminophen 650 mg Q4HP PRN PO 01/16/25 02:45 01/16/25 23:09 650 MG Docusate Sodium 200 mg HS PO 01/16/25 22:00 01/16/25 23:12 200 MG Ibuprofen 600 mg Q6HR PRN PO 01/16/25 09:45 Cancel Ibuprofen 600 mg Q6HP PRN PO 01/17/25 01:00 laboratory and microbiology Laboratory Tests 01/16/25 16:59 01/15/25 20:42 Test 01/15/25 20:42 Range/Units Serum Glucose 90 74-106 mg/dL Plan discussed with: Patient, Other (mother) BARBARATHEE STUDENTMDW Jan 16, 2025 23:59
--- NOTE | 2025-01-17 00:20 | DVHPN2 ---
Progress Note Date Seen: Jan 17, 2025 Subjective S: bleeding is less, eating food without issues, denies lightheaded/dizziness, pain well controlled with oral medications, no concerns with urinating, passing flatus, no BM yet, ambulating well, well vital signs Vital Sign Date Time Temp Pulse Resp B/P (MAP) Pulse Ox O2 Delivery O2 Flow Rate FiO2 01/16/25 23:00 98.4 73 17 107/62 (77) 96 98.4 01/16/25 19:51 Room Air Total Intake and Output 01/16/25 01/16/25 01/17/25 15:00 23:00 07:00 Output Total 600 ml Balance -600 ml medications Current Medications Medications Dose Ordered Sig/Alfred Route Start Time Stop Time Status Last Admin Dose Admin Witch Jocelyn 1 pad PRN PRN TOP 01/15/25 20:30 01/15/25 23:18 1 PAD Sodium Lauryl Sulfate 240 ml PRN PRN TOP 01/15/25 20:30 01/15/25 23:18 240 ML Benzocaine 1 applic PRN PRN TOP 01/15/25 20:30 01/15/25 23:18 1 APPLIC Acetaminophen 650 mg Q4HP PRN PO 01/16/25 02:45 01/16/25 23:09 650 MG Docusate Sodium 200 mg HS PO 01/16/25 22:00 01/16/25 23:12 200 MG Ibuprofen 600 mg Q6HR PRN PO 01/16/25 09:45 Cancel Ibuprofen 600 mg Q6HP PRN PO 01/17/25 01:00 laboratory and microbiology Laboratory Tests 01/16/25 16:59 01/15/25 20:42 Test 01/15/25 20:42 Range/Units Serum Glucose 90 74-106 mg/dL Objective O: VSS Chest: heart sounds normal and lung sounds clear bilaterally Abd: soft, non-tender, fundus at 1 below U/firm/midline, active bowel sounds, no rebound or guarding Perineum: sutures intact, edges well approximated, no erythema/edema noted Ext: Non-tender, No edema Lochia: minimal See lab results Problems(with codes): (1) PPH ( hemorrhage) (2) (normal spontaneous vaginal delivery) (3) Obstetric labial laceration, delivered, current hospitalization (4) Precipitous drop in hematocrit Assessment/Plan A/P: 24yo now PPD#1 s/p -Continue routine PP care -Rx sent to pharmacy - precautions and preeclampsia warning signs reviewed Plan discussed with: Patient, Other (partner) Visit Coding OBGYN Date of Service: Jan 17, 2025 Billing Provider: IVA TERESA CNM LOAN UNDERWRITER Common Visit Codes: [id number] INP/OBS CARE(HIGH) THEE JIMENEZ STUDENTMDW Jan 17, 2025 00:20
[2025-01-17] MEDS: IBUPROFEN 600 MG TAB PO PRN (02:28)
[2025-01-17 02:52] VITALS: BP 100/50; PULSE 58; RESP 16; TEMP 97.8; O2SAT 99
== END 2025-01-17 11:32 | disposition home or self-care (01) | DRG 560 ==
LOC: LDRP 18:17 → OBSVTOIN 19:43 → LDRP 19:59
PROVIDERS: ADMIT Obstetrics & Gynecology; ATTEND Obstetrics & Gynecology
PROC: 10E0XZZ Delivery of Products of Conception, External Approach (ICD-10-PCS; principal; 2025-01-16)
DX: O99.824 Streptococcus B carrier state complicating childbirth (principal); Z37.0 Single live birth; R71.0 Precipitous drop in hematocrit; O99.02 Anemia complicating childbirth; Z3A.39 39 weeks gestation of pregnancy; Z79.2 Long term (current) use of antibiotics; Z79.899 Other long term (current) drug therapy; Z79.1 Long term (current) use of non-steroidal anti-inflammatories (NSAID)
CPT/HCPCS: 36415; 59025; 59409; 76805; 80053; 80307; 81001; 81002; 85025; 85610; 85730; 86780; 86850; 86900; 86901; 94760; 96360; 96361; 96365; 96366; 96372; G0378; J2590